=== PATIENT | female | born 2005 | race Hispanic/Latino ===

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

== ENCOUNTER 2024-01-14 22:06 | Emergency (ER) | payer OTHER ==
[2024-01-14] MEDS ORDERED: FLEET ENEMA ADULT PR ONE (23:43)
[2024-01-14] MEDS ORDERED: LACTULOSE 20 GM/30 ML UCUP ONE (23:43)
[2024-01-15] MEDS ORDERED: KETOROLAC 30 MG/ML INJ ONE (00:12)
[2024-01-15] MEDS ORDERED: DIAZEPAM 10 MG/2 ML INJ SYRINGE ONE (02:01)
--- NOTE | 2024-01-15 02:07 | ER ---
Nurse's Notes [facility] Name: Marcela Lim Age: 18 yrs Sex: Female : 2005 Arrival Date: 01/14/2024 Time: 22:06 Bed 6 Private MD: Diagnosis: Constipation and fecal impaction secondary to opiate abuse Presentation: 01/13 22:47 Chief complaint: Patient states: "I'm constipated, I was here in November for it.". vc1 Coronavirus screen: Client denies travel out of the [place] in the last 14 days. At this time, the client does not indicate any symptoms associated with coronavirus-19. Ebola Screen: Patient negative for fever greater than or equal to 101.5 degrees Fahrenheit, and additional compatible Ebola Virus Disease symptoms Patient denies exposure to infectious person. Patient denies travel to an Ebola-affected area in the 21 days before illness onset. No symptoms or risks identified at this time. Initial Sepsis Screen: Does the patient meet any 2 criteria? No. Patient's initial sepsis screen is negative. Does the patient have a suspected source of infection? No. Patient's initial sepsis screen is negative. Risk Assessment: Do you want to hurt yourself or someone else? Patient reports no desire to harm self or others. Onset of symptoms was January 09, 2024. 22:47 Method Of Arrival: Ambulatory vc1 22:47 Acuity: IVETH 3 vc1 Triage Assessment: 22:50 General: Appears in no apparent distress. uncomfortable, slender, unkempt, Behavior is vc1 cooperative, anxious. Pain: Complains of pain in right lower quadrant and left lower quadrant Pain does not radiate. Pain currently is 10 out of 10 on a pain scale. Quality of pain is described as crampy, pressure, squeezing, Noted to be guarding. EENT: No deficits noted. No signs and/or symptoms were reported regarding the EENT system. Neuro: Level of Consciousness is awake, alert, obeys commands, Oriented to person, place, time, situation, Appropriate for age. Cardiovascular: Capillary refill < 3 seconds Patient's skin is warm and dry. Respiratory: Airway is patent Respiratory effort is even, unlabored, Respiratory pattern is regular, symmetrical. GI: Abdomen is flat, Reports lower abdominal pain, bloating, constipation. : No deficits noted. No signs and/or symptoms were reported regarding the genitourinary system. Derm: Skin is intact, is healthy with good turgor, Skin is dry, Skin is normal, Skin temperature is warm. Musculoskeletal: Circulation, motion, and sensation intact. Range of motion: intact in all extremities. 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 - Infectious Disease History:: Denies. - Social history:: Smoking status: Patient reports the use of cigarette tobacco products, smokes one pack cigarettes per day. Reported history of juuling and/or vaping. Patient uses street drugs, opiates. Screenin:50 Abuse screen: Denies threats or abuse. Nutritional screening: No deficits noted. vc1 Tuberculosis screening: No symptoms or risk factors identified. 23:[address] [facility] ED Fall Risk Assessment (Adult) History of falling in the last 3 months, vc1 including since admission No falls in past 3 months (0 pts) Confusion or Disorientation No (0 pts) Intoxicated or Sedated Yes (3 pts) Impaired Gait No (0 pts) Mobility Assist Device Used No (0 pt) Altered Elimination Yes (1 pt) Score/Fall Risk Level 3 or more points = High Risk Oriented to surroundings, Maintained a safe environment, Educated pt \\T\\ family on fall prevention, incl call for assistance when getting out of bed, Hourly rounding (assess needs \\T\\ fall precautionary measures) done. Assessment: 01/14 00:15 Reassessment: Patient and/or family updated on plan of care and expected duration. Pain bm8 level reassessed. General: Appears distressed, uncomfortable, Behavior is agitated, anxious. Pain: Pain radiates to abdomen Pain currently is 10 out of 10 on a pain scale. Quality of pain is described as aching, crampy. Neuro: No deficits noted. Level of Consciousness is awake, alert, obeys commands, Oriented to person, place, time, situation, Appropriate for age. Cardiovascular: Denies chest pain, Capillary refill < 3 seconds in bilateral fingers Patient's skin is warm and dry. Respiratory: Airway is patent Trachea midline Respiratory effort is even, unlabored, Respiratory pattern is regular, symmetrical, Breath sounds are clear bilaterally. GI: Bowel sounds hypoactive in left upper quadrant and left lower quadrant Abd is rigid in left upper quadrant and left lower quadrant Reports constipation, Pain is 10 out of 10 on a pain scale. : No signs and/or symptoms were reported regarding the genitourinary system. EENT: No signs and/or symptoms were reported regarding the EENT system. Derm: No signs and/or symptoms reported regarding the dermatologic system. Musculoskeletal: No signs and/or symptoms reported regarding the musculoskeletal system. 02:06 Reassessment: pt stated that she is not going to do this while awake and she was bm8 leaving and going to [place].. Pt Refused to AMA form and walked out with mother. Vital Signs: 01/13 22:47 BP 126 / 74; Pulse 103; Resp 15; Temp 97; Pulse Ox 98% ; Weight 45.36 kg; Height 5 ft. vc1 3 in. ; Pain 10/10; 01/14 00:15 BP 158 / 99; Pulse 96; Resp 17; Temp 97; Pulse Ox 100% ; Pain 10/10; bm8 02:06 bm8 01/13 22:47 Body Mass Index 17.71 (45.36 kg, 160.02 cm) - Percentile 4.4 % vc1 01/13 22:47 Pain Scale: Adult vc1 01/14 00:15 Pain Scale: Adult bm8 02:06 refused to allow last vital signs bm8 Marilyn Coma Score: 00:15 Eye Response: spontaneous(4). Motor Response: obeys commands(6). Verbal Response: bm8 oriented(5). Total: 15. 02:06 Eye Response: spontaneous(4). Motor Response: obeys commands(6). Verbal Response: bm8 oriented(5). Total: 15. ED Course: 01/13 22:11 Patient arrived in ED. ra3 22:12 Madi Abel MD is Attending Physician. rt 22:20 [facility] Stovall [facility]C [facility] sb4 22:48 Triage completed. vc1 22:50 Arm band placed on right wrist. vc1 01/14 00:08 Joe Boucher, RN is Primary Nurse. bm8 00:15 Patient has correct armband on for positive identification. Bed in low position. Call bm8 light in reach. Side rails up X 1. Adult w/ patient. Client placed on continuous cardiac and pulse oximetry monitoring. NIBP monitoring applied. Pulse ox on. NIBP on. Door closed. Noise minimized. Warm blanket given. Pillow given. Verbal reassurance given. Head of bed elevated. 00:15 Patient maintains SpO2 saturation greater than 95% on room air. bm8 01:38 Abdomen In Process Unspecified. EDMS 02:06 Provided Education on: post er care,.. bm8 02:06 No provider procedures requiring assistance completed. IV discontinued, intact, bm8 bleeding controlled, No redness/swelling at site. Pressure dressing applied. Administered Medications: 00:08 Drug: Lactulose PO 30 grams 45 ml PO once Volume: 45 ml; Route: PO; bm8 02:06 Follow up: Response: No adverse reaction bm8 00:15 Drug: Ketorolac IM 15 mg IM once Route: IM; Site: right deltoid; bm8 02:06 Follow up: Response: No adverse reaction bm8 01:48 CANCELLED (Physician Discretion): diazepam5 mg IM once sb4 02:06 Not Given (Patient Refused): fleet ml NE once; may repeat once bm8 02:06 Not Given (Patient Refused): [id number] mg IM once bm8 Medication: 01/13 23:01 VIS not applicable for this client. vc1 Outcome: 01/14 02:06 AMA Left before signing form, bm8 Condition: stable Discharge instructions given to patient, family, Demonstrated understanding of instructions, follow-up care, 02:10 Patient left the ED. bm8 Signatures: Dispatcher [employer] EDVA Sharon Caldwell RN RN vc1 Ena Stovall PA-C PAJacob sb4 Madi Abel MD MD rt [place], Ruby ra3 Joe Boucher, RN RN bm8
--- NOTE | 2024-01-15 02:07 | EDPHYS ---
Physician Documentation [facility] Name: Marcela Lim Age: 18 yrs Sex: Female : 2005 Arrival Date: 01/14/2024 Time: 22:06 Bed 6 Private MD: ED Physician Madi bAel HPI: 01/13 23:29 This 18 yrs old Female presents to ER via Ambulatory with complaints of Constipation - sb4 x5days. 23:29 chronic constipation secondary to opiate abuse. has not had a BM in 5 days. has sb4 required fecal disimpaction in the past. has tried taking 1 stool softener and 1 laxative without relief. was taking ducolax daily but stopped awhile back. uses opiates daily. PRODUCTION EDITOR: 23:00 LMP 01/13/2024, unknown vc1 Historical: - Allergies: 22:49 No Known Allergies; vc1 - Home Meds: 22:49 None [Active]; vc1 - PMHx: 22:49 constipation; Opiate Abuse; vc1 - PSHx: 22:49 None; vc1 - Immunization history:: Client reports receiving the 2nd dose of the Covid vaccine, Flu vaccine is not up to date. - Infectious Disease History:: Denies. - Social history:: Smoking status: Patient reports the use of cigarette tobacco products, smokes one pack cigarettes per day. Reported history of juuling and/or vaping. Patient uses street drugs, opiates. ROS: 23:29 Constitutional: Negative for fever, chills, and weight loss, sb4 23:29 Abdomen/GI: Positive for abdominal pain, constipation, abdominal cramps, 23:29 All other systems are negative, Exam: 23:29 Head/Face: Normocephalic, atraumatic. Eyes: Extra-ocular motions intact. Periorbital sb4 areas with no swelling, redness, or edema. ENT: Mucous membranes moist. Respiratory: No increased work of breathing, no retractions or nasal flaring. Abdomen/GI: Soft, non-tender, no distension. Skin: Warm, dry with normal turgor. Normal color with no rashes, no lesions, and no evidence of cellulitis. 23:29 Constitutional: The patient appears alert, awake, restless, uncomfortable, Vital Signs: 22:47 BP 126 / 74; Pulse 103; Resp 15; Temp 97; Pulse Ox 98% ; Weight 45.36 kg; Height 5 ft. vc1 3 in. ; Pain 10/; 01/14 00:15 BP 158 / 99; Pulse 96; Resp 17; Temp 97; Pulse Ox 100% ; Pain 10/10; bm8 02:06 bm8 01/13 22:47 Body Mass Index 17.71 (45.36 kg, 160.02 cm) - Percentile 4.4 % vc1 01/13 22:47 Pain Scale: Adult vc1 01/14 00:15 Pain Scale: Adult bm8 02:06 refused to allow last vital signs bm8 Marilyn Coma Score: 00:15 Eye Response: spontaneous(4). Motor Response: obeys commands(6). Verbal Response: bm8 oriented(5). Total: 15. 02:06 Eye Response: spontaneous(4). Motor Response: obeys commands(6). Verbal Response: bm8 oriented(5). Total: 15. MDM: 01/13 22:53 Medical Screening Exam initiated sb4 01/14 01:53 Data reviewed: vital signs, nurses notes, radiologic studies, and as a result, I will sb4 discharge patient. Counseling: I had a detailed discussion with the patient and/or guardian regarding the historical points, exam findings, and any diagnostic results supporting the discharge/admit diagnosis, radiology results, the need for outpatient follow up, for definitive care, to return to the emergency department if symptoms worsen or persist or if there are any questions or concerns that arise at home. 01:58 Independent interpretation of the following test(s) in the Emergency Department CT sb4 Scan: My interpretation is My interpretation of the CT abdomen pelvis images is large stool burden with fecal impaction. 02:03 ED course: Patient and mother were very unhappy with mild anxiolytic diazepam to relax sb4 patient in order to do fecal disimpaction and promptly left the ED. they wanted full sedation for procedure because they had it last time. I instructed them that it would be safest to try this method first and escalate to moderate sedation if not tolerated but they were unhappy and stormed out. stated that they will be going [facility]. my disposition will be AMA for this reason. 02:07 Refusal of service: The patient/guardian displays adequate decision making capability sb4 and despite a detailed discussion of alternatives, benefits, risks, and consequences refuses: disimpaction. 01/14 01:38 Order name: Abdomen ; Complete Time: 17:04 EDMS Administered Medications: 00:08 Drug: Lactulose PO 30 grams 45 ml PO once Volume: 45 ml; Route: PO; bm8 02:06 Follow up: Response: No adverse reaction bm8 00:15 Drug: Ketorolac IM 15 mg IM once Route: IM; Site: right deltoid; bm8 02:06 Follow up: Response: No adverse reaction bm8 01:48 CANCELLED (Physician Discretion): diazepam5 mg IM once sb4 02:06 Not Given (Patient Refused): fleet ml MD once; may repeat once bm8 02:06 Not Given (Patient Refused): [id number] mg IM once bm8 Disposition: 03:35 Co-signature as Attending Physician, Madi Abel MD I reviewed the patient's care rt provided by the Advanced Practice Provider and agree with the diagnosis and treatment plan. Disposition Summary: 01/15/24 02:07 Left Against Medical Advice Notes: Location: Home sb4 Problem: an ongoing problem sb4 Symptoms: are unchanged sb4 Condition: Fair sb4 Diagnosis - Constipation and fecal impaction secondary to opiate abuse sb4 Followup: sb4 - With: Emergency Department - When: As needed - Reason: Trouble breathing, Worsening of condition Discharge Instructions: - Discharge Summary Sheet sb4 - Constipation, Adult sb4 - High-Fiber Eating Plan sb4 - Fecal Impaction sb4 Prescriptions: - bisacodyl 5 mg Oral tablet, delayed release (enteric coated) - take 2 tablet ORAL route daily as needed for constipation; 30 tablet; Refills: sb4 0, Product Selection Permitted - Lactulose 10 gram/15 mL Oral Solution - take 30 milliliters ORAL route once daily; 300 milliliter; Refills: 0, Product sb4 Selection Permitted Signatures: Dispatcher [facility] EDKY Sharon Caldwell RN RN vc1 Ena Stovall PA-C PA-C sb4 Madi Abel MD MD rt Joe Boucher RN RN bm8 Corrections: (The following items were deleted from the chart) 01/13 23:27 22:59 Abdomen Pelvis Wo Con+CT.RAD.BRZ ordered. EDKY EDMS 01/14 01:38 01/13 23:19 Abdomen Pelvis W Con+CT.RAD.BRZ ordered. EDMS EDMS 01/14 01:48 01:47 Diazepam IM 5 mg IM once ordered. sb4 sb4 02:07 02:03 ED course: Patient and mother were very unhappy with mild anxiolytic diazepam to sb4 relax patient in order to do fecal disimpaction and promptly left the ED. they wanted full sedation for procedure because they had it last time. I instructed them that it would be safest to try this method first and escalate to moderate sedation if not tolerated but they were unhappy and stormed out. sb4 02:08 02:03 ED course: Patient and mother were very unhappy with mild anxiolytic diazepam to sb4 relax patient in order to do fecal disimpaction and promptly left the ED. they wanted full sedation for procedure because they had it last time. I instructed them that it would be safest to try this method first and escalate to moderate sedation if not tolerated but they were unhappy and stormed out. stated that they will be going to [facility]. sb4
--- NOTE | 2024-01-15 02:13 | RAD REPORT ---
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 COMPARISON: CT Abdomen Pelvis 11/25/2023. PROCEDURE: Noncontrast images of the abdomen and pelvis were performed from the lung bases to the ischial tubero sities. In addition multiplanar reformats in the coronal and sagittal plane were obtained and reviewed. An individualized dose optimization technique, Automated Exposure Control, was utilized for the perfo rmed procedure. FINDINGS: The lack of IV contrast limits evaluation of solid organs, subtle lesions cannot be exclude d. Lung bases: The lung bases demonstrate to be clear. Liver: Grossly the unopacified liver demonstrates to be normal, no focal lesions are identified. Gallbladder: Grossly the unopacified gallbladder demonstrate to be normal. Adrenal glands: Grossly the unopacified adrenal glands demonstrate to be normal. Pancreas: Grossly the unopacified pancreas demonstrate to be normal Spleen: The spleen demonstrate to be normal. Kidneys: Grossly the unopacified kidneys demonstrate to be within normal limits. There is no eviden ce for nephrolithiasis and/or hydronephrosis. GI: The opacified stomach and small bowel demonstrate to be within normal limits. No evidence for bow el dilatation and/or free air. The appendix is normal. The partially opacified large bowel demonstrate fecal residue throughout corresponding to constipation. Significant fecal residue within the rectum correspond to impaction. : The urinary bladder demonstrate to be unremarkable. Genitalia: The uterus demonstrate to be within normal limits. There are normal adnexal structures. Abdominal aorta: The aorta demonstrate demonstrate to be within normal limits. Retroperitoneum: There is no retroperitoneal lymphadenopathy. There is no evidence for ascites and/or abnormal fluid collections. Bones: The bony structures demonstrate to be within normal limits. No evidence for compression deform ity and/or significant skeletal lesions. Soft tissues: The rest of the soft tissue and bony structures are within normal limits. IMPRESSION: Constipation with fecal residue throughout the large bowel corresponding to impaction. Otherwise unremarkable CT scan of the abdomen and pelvis without contrast. Electronically signed by: Ismael Flores MD 01/15/2024 02:09 AM ESE TEACHER Due to temporary technical issues with the PACS/Ritot reporting system, reports are being leelee d by the in-house radiologist without review as a courtesy to ensure prompt reporting the interpreting radiologist is fully responsible for the content of the report. Transcribed Date/Time: 01/15/2024 2:12 AM
[2024-01-15 03:50] VITALS: TEMP 97
[2024-01-15 03:51] VITALS: BP 158/99; O2SAT 100
== END 2024-01-15 02:10 | disposition left against medical advice (07) ==
LOC: ER 22:06
DX: K56.41 Fecal impaction (principal); F11.10 Opioid abuse, uncomplicated; Z72.0 Tobacco use
CPT/HCPCS: 74176; 96372; 99284; J3360

== ENCOUNTER 2024-02-22 18:57 | Emergency (ER) | payer OTHER ==
[2024-02-22] MEDS ORDERED: NA CHLORIDE 0.9% 1,000 ML ONE (20:24)
[2024-02-22 20:44] LABS: Absolute Lymphocytes (CBC) 1.6 K/uL (0.7-4.9); Absolute Monocytes 0.4 K/uL (0.1-1.3); Absolute Neutrophil 7.1 K/uL (1.8-8.0); Basophils % 0.4 % (0-1.3); Eosinophils % 0.2 % (0-4.4); Hematocrit 43.1 % (36.0-45.0); Hemoglobin 14.4 g/dL (12.0-15.0); Lymphocytes % 17.9 % (15.3-44.8); MCH 26.7 pg (27.0-35.0); MCHC 33.4 g/dL (32.0-36.0); MPV 6.8 fL (7.6-11.3); Monocytes % 3.9 % (3.3-12.3); Neutrophils % 77.6 % (41.7-73.7); Nucleated Red Blood Cells % 0.1 % (0-0); Platelets 451 thou/uL (152-406); RBC Red Blood Cell Count 5.39 M/uL (3.86-4.86); Red Cell Distribution Width 12.9 % (12.1-15.2)
[2024-02-22] MEDS ORDERED: ONDANSETRON 4 MG/2 ML VIAL ONE (20:46)
[2024-02-22] MEDS ORDERED: ETOMIDATE 20 MG/10 ML VIAL IV ONE (20:46)
[2024-02-22 21:01] LABS: Albumin 4.3 g/dL (3.4-5.0); Anion Gap 12.2 mEq/L (5.0-15.0); Bilirubin Total 0.6 mg/dL (0.2-1.0); Globulin 4.1 g/dL (2.3-3.5); Potassium 3.2 mEq/L (3.5-5.1); Protein, Total 8.4 g/dL (6.4-8.2)
--- NOTE | 2024-02-22 21:09 | RAD REPORT ---
EXAM:Abdomen Acute Series HISTORY: ABD PAIN COMPARISON: None FINDINGS/IMPRESSION: Lungs are clear. The heart is normal in size. No subdiaphragmatic free air. Sign ificant retained stool throughout the colon compatible with constipation.
[2024-02-22] MEDS ORDERED: MIDAZOLAM HCL 5 ML ONE (21:21)
--- NOTE | 2024-02-22 23:59 | ER ---
Nurse's Notes [facility] Name: Marcela Lim Age: 18 yrs Sex: Female : 2005 Arrival Date: 02/22/2024 Time: 18:57 Bed 14 Private MD: Diagnosis: Fecal impaction;Acute obstipation Presentation: 02/21 19:05 Chief complaint: Patient states: Patient states she has been constipated for the past 2 le1 weeks and the mother usually helps with disimpaction but is not available. Coronavirus screen: At this time, the client does not indicate any symptoms associated with coronavirus-19. Ebola Screen: Patient negative for fever greater than or equal to 101.5 degrees Fahrenheit, and additional compatible Ebola Virus Disease symptoms Patient denies exposure to infectious person. Patient denies travel to an Ebola-affected area in the 21 days before illness onset. No symptoms or risks identified at this time. Initial Sepsis Screen: Does the patient meet any 2 criteria? No. Patient's initial sepsis screen is negative. Does the patient have a suspected source of infection? No. Patient's initial sepsis screen is negative. Risk Assessment: Do you want to hurt yourself or someone else? Patient reports no desire to harm self or others. Onset of symptoms was February 05, 2024. 19:05 Method Of Arrival: EMS: [facility] le1 19:05 Acuity: IVETH 3 le1 Triage Assessment: 19:13 General: Appears distressed, uncomfortable, unkempt, Behavior is agitated, anxious, le1 restless, Smells of cigarettes. Pain: Complains of pain in abdomen Pain currently is 10 out of 10 on a pain scale. Quality of pain is described as aching. EENT: No deficits noted. Neuro: No deficits noted. Cardiovascular: No deficits noted. Respiratory: No deficits noted. GI: Reports constipation. : No deficits noted. Derm: No deficits noted. Historical: - PMHx: 19:12 constipation; Opiate Abuse; le1 - Immunization history:: Adult Immunizations up to date. - Infectious Disease History:: Denies. - Social history:: Smoking status: Patient reports the use of cigarette tobacco products, denies chronic smoking, but will smoke occasionally. - Family history:: not pertinent. Screenin:14 [facility] ED Fall Risk Assessment (Adult) History of falling in the last 3 months, le1 including since admission No falls in past 3 months (0 pts) Confusion or Disorientation No (0 pts) Intoxicated or Sedated No (0 pts) Impaired Gait No (0 pts) Mobility Assist Device Used No (0 pt) Altered Elimination No (0 pt) Score/Fall Risk Level 0 - 2 = Low Risk Oriented to surroundings, Maintained a safe environment, Educated pt \T\ family on fall prevention, incl call for assistance when getting out of bed, Assessed \T\ reinforced patient's understanding of fall precautions, Hourly rounding (assess needs \T\ fall precautionary measures) done. Abuse screen: Denies threats or abuse. Denies injuries from another. Nutritional screening: No deficits noted. Tuberculosis screening: No symptoms or risk factors identified. Assessment: 19:14 General: Triage assessment. le1 19:51 General: Patient anxious stating she wants to go to restroom but is too scared. Patient le1 decided to wait on provider before attempting to go to bathroom. 19:52 GI: Abd is soft X 4 quads Abdomen is tender to palpation X 4 quads. le1 Vital Signs: 19:05 BP 130 / 93; Pulse 87; Resp 16; Temp 98.3(O); Pulse Ox 99% on R/A; Pain 10/10; le1 19:54 BP 147 / 121; Pulse 136; Resp 14; Pulse Ox 100% on R/A; Pain 10/10; le1 21:09 BP 130 / 80; Pulse 117; Resp 25; Pulse Ox 95% on R/A; Pain 10/10; le1 02/22 00:11 BP 132 / 67; Pulse 87; Resp 16; Temp 98.3(O); Pulse Ox 100% on R/A; Pain 0/10; le1 02/21 19:05 Pain Scale: Adult le1 19:54 Pain Scale: Adult le1 21:09 Pain Scale: Adult le1 02/22 00:11 Pain Scale: Adult le1 Marilyn Coma Score: 06:50 Eye Response: spontaneous(4). Motor Response: obeys commands(6). Verbal Response: sp4 oriented(5). Total: 15. ED Course: 02/21 18:59 Patient arrived in ED. sp 19:04 Kevon Jensen RN is Primary Nurse. le1 19:12 Triage completed. le1 19:14 Arm band placed on right wrist. le1 19:15 Bed in low position. Call light in reach. Side rails up X2. Adult w/ patient. Provided le1 Education on: Informed to use call light if needing assistance. 20:06 Meng Zamarripa MD is Attending Physician. sp4 20:35 CBC with Diff Sent. le1 20:35 CMP Sent. le1 20:35 Lipase Sent. le1 20:35 Test, Serum Sent. le1 20:54 Inserted saline lock: 20 gauge in right antecubital area, using aseptic technique. le1 Blood collected. Flushed with 10 mL NS. 21:04 Abdomen Acute Series XRAY In Process Unspecified. EDMS 23:58 Nick Sanon MD is Referral Physician. sp4 02/22 00:12 Assisted provider with: Moderate Sedation. IV discontinued, intact, bleeding le1 controlled, No redness/swelling at site. Pressure dressing applied. Administered Medications: 02/21 20:35 Drug: NS 0.9% IV 1000 ml IV at 1000 ml once; to be given as a bolus over 60 minutes le1 Route: IV; Rate: 1000 ml; Site: right antecubital; 22:09 Follow up: IV Status: Completed infusion le1 21:16 Drug: Ondansetron IVP 4 mg IVP once; over 2 minutes Route: IVP; Site: right antecubital;le1 21:16 Follow up: Response: No adverse reaction le1 21:17 Drug: Etomidate IVP 20 mg IVP once Route: IVP; Site: right antecubital; le1 21:17 Follow up: Response: RASS: Restless (+1) le1 21:21 Drug: Midazolam IVP or IV 5 mg IVP once Route: IVP; Site: right antecubital; le1 21:21 Follow up: Response: Patient is sedated le1 Medication: 02/22 00:14 VIS not applicable for this client. le1 Outcome: 02/21 23:59 Discharge ordered by . sp4 02/22 00:13 Discharged to home via wheelchair, with family, le1 Condition: improved Discharge instructions given to patient, Instructed on discharge instructions, follow up and referral plans. medication usage, Demonstrated understanding of instructions, follow-up care, medications, Prescriptions given X 1, 00:14 Patient left the ED. le1 Signatures: Dispatcher [employer] EDMS Mackenzie Merritt Sergey, MD MD sp4 Kevon Jensen RN RN le1
--- NOTE | 2024-02-22 23:59 | EDPHYS ---
Physician Documentation [facility] Name: John Calles Age: 18 yrs Sex: Female : 2005 Arrival Date: 02/22/2024 Time: 18:57 Bed 14 Private MD: ED Physician Meng Zamarripa HPI: 02/21 20:06 This 18 yrs old Female presents to ER via EMS with complaints of Constipation.sp4 02/22 06:50 18-year-old female presents with moderate to severe rectal pain. Patient states she has sp4 been constipated for the past 2 weeks. Patient has history of prior fentanyl addiction. Patient states that she has completed rehabilitation and has been off of her methadone for the past 2 weeks. Patient denies consumption of any opiates at this time. Patient is known to me from previous visit for severe constipation with fecal impaction. Patient has acute distress on arrival.. Historical: - PMHx: 02/21 19:12 constipation; Opiate Abuse; le1 - Immunization history:: Adult Immunizations up to date. - Infectious Disease History:: Denies. - Social history:: Smoking status: Patient reports the use of cigarette tobacco products, denies chronic smoking, but will smoke occasionally. - Family history:: not pertinent. ROS: 02/22 06:50 Constitutional: Negative for fever, chills, and weight loss, positive for rectal pain sp4 and constipation All other systems are negative, Exam: 06:50 Constitutional: This is a well developed, well nourished patient who is awake, alert, sp4 patient is in moderate distress on arrival Head/Face: Normocephalic, atraumatic. Eyes: Pupils equal round and reactive to light, extra-ocular motions intact. Lids and lashes normal. Conjunctiva and sclera are not injected. Cornea within normal limits. Periorbital areas with no swelling, redness, or edema. ENT: Nares patent. No nasal discharge, no septal abnormalities noted. Tympanic membranes are normal and external auditory canals are clear. Oropharynx with no redness, swelling, or masses, exudates, or evidence of obstruction, uvula midline. Mucous membranes moist. Neck: Trachea midline, no thyromegaly or masses palpated, and no cervical lymphadenopathy. Supple, full range of motion without nuchal rigidity, or vertebral point tenderness. Chest/axilla: Normal chest wall appearance and motion. Nontender with no deformity. No lesions are appreciated. Cardiovascular: Regular rate and rhythm with a normal S1 and S2. No gallops, murmurs, or rubs. Normal PMI, no JVD. No pulse deficits. Respiratory: Lungs have equal breath sounds bilaterally, clear to auscultation and percussion. No rales, rhonchi or wheezes noted. No increased work of breathing, no retractions or nasal flaring. Abdomen/GI: Soft, with normal bowel sounds. No distension or tympany. No guarding or rebound. No evidence of tenderness throughout. Back: No spinal tenderness. No costovertebral tenderness. Female : Normal external genitalia. Rectal exam reveals moderate size fecal impaction. 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 Skin: Warm, dry with normal turgor. Normal color with no rashes, no lesions, and no evidence of cellulitis. MS/ Extremity: Pulses equal, no cyanosis. Neurovascular intact. Full, normal range of motion. Neuro: Awake and alert, GCS 15, oriented to person, place, time, and situation. Cranial nerves II-XII grossly intact. Motor strength 5/5 in all extremities. Sensory grossly intact. Psych: Awake, alert, with orientation to person, place and time. Patient has restlessness and mild agitation secondary to pain Vital Signs: 02/21 19:05 BP 130 / 93; Pulse 87; Resp 16; Temp 98.3(O); Pulse Ox 99% on R/A; Pain 10/10; le1 19:54 BP 147 / 121; Pulse 136; Resp 14; Pulse Ox 100% on R/A; Pain 10/10; le1 21:09 BP 130 / 80; Pulse 117; Resp 25; Pulse Ox 95% on R/A; Pain 10/10; le1 02/22 00:11 BP 132 / 67; Pulse 87; Resp 16; Temp 98.3(O); Pulse Ox 100% on R/A; Pain 0/10; le1 02/21 19:05 Pain Scale: Adult le1 19:54 Pain Scale: Adult le1 21:09 Pain Scale: Adult le1 02/22 00:11 Pain Scale: Adult le1 Marilyn Coma Score: 06:50 Eye Response: spontaneous(4). Motor Response: obeys commands(6). Verbal Response: sp4 oriented(5). Total: 15. Procedures: 06:50 Fecal disimpaction: digital disimpaction was performed, with a large amount of stool sp4 expressed. The patient tolerated the intervention well, Digital rectal exam and fecal disimpaction accomplished under moderate sedation with etomidate and Versed.. Procedural sedation: Pre-procedure assessment: the patient has been NPO 4 hour(s) prior to arrival, ASA physical classification: I - healthy, no underlying organic disease, Airway assessment: able to hyperextend neck, able to maintain airway, can open mouth without difficulty, Mallampati classification of tongue size: II - faucial pillars and soft palate can be visualized, but uvula is masked by the base of the tongue, Monitoring during procedure: monitoring manager, continuous pulse oximetry, nurse at bedside at all times, Medications employed: Etomidate, 20 mg(s), Versed, 5 mg(s), Alternatives to procedural sedation discussed Patient responded well to moderate sedation. Total intra sedation time 26 minutes. On awakening patient was provided moderate sedation discharge instructions. , Post-procedure assessment: the patient is moderately sedated, Trevino sedation score: 4 - brisk response to a light glabellar tap, Respiratory status: requires supplemental oxygen to maintain acceptable oxygen saturation, a reversal agent was not used, Moderate sedation without complications.. MDM: 02/21 20:07 Medical Screening Exam initiated sp4 02/22 00:02 ED course: RADIOLOGYSERVICES REPORT Name: JOHN CALLES Acct Number: s :2005 Age:18 Sex:F Ord Phys: Meng Zamarripa MD Unit Number: [id number] [facility]rey Care Dr: NONE Status: [facility] ER Exam Date: 02/22/24 EXAM:AbdomenAcute Series HISTORY: ABD PAIN COMPARISON: None FINDINGS/IMPRESSION: Lungs are clear. The heart is normal in size. No subdiaphragmatic free air. Significant retained stool throughout the colon compatible with constipation. . 06:56 Differential diagnosis: bowel obstruction, diverticulitis, gastritis. Data reviewed: sp4 vital signs, nurses notes, lab test result(s), radiologic studies, plain films. Consideration of Admission/Observation Escalation of care including admission/observation considered. ED course: Patient felt much improved after disimpaction. Stable for discharge home.. 02/21 20:06 Order name: Test, Serum; Complete Time: 23:58 sp4 02/21 20:07 Order name: CBC with Diff; Complete Time: 23:58 sp4 02/21 20:07 Order name: CMP; Complete Time: 23:58 sp4 02/21 20:07 Order name: Lipase; Complete Time: 23:58 sp4 02/21 20:06 Order name: Abdomen Acute Series XRAY; Complete Time: 23:58 sp4 02/21 20:06 Order name: Saline Lock; Complete Time: 20:35 sp4 02/21 20:07 Order name: Labs collected and sent; Complete Time: 20:35 sp4 02/21 20:20 Order name: Moderate Sedation; Complete Time: 00:11 sp4 Administered Medications: 02/21 20:35 Drug: NS 0.9% IV 1000 ml IV at 1000 ml once; to be given as a bolus over 60 minutes le1 Route: IV; Rate: 1000 ml; Site: right antecubital; 22:09 Follow up: IV Status: Completed infusion le1 21:16 Drug: Ondansetron IVP 4 mg IVP once; over 2 minutes Route: IVP; Site: right antecubital;le1 21:16 Follow up: Response: No adverse reaction le1 21:17 Drug: Etomidate IVP 20 mg IVP once Route: IVP; Site: right antecubital; le1 21:17 Follow up: Response: RASS: Restless (+1) le1 21:21 Drug: Midazolam IVP or IV 5 mg IVP once Route: IVP; Site: right antecubital; le1 21:21 Follow up: Response: Patient is sedated le1 Disposition: 02/22 06:56 Chart complete. sp4 Disposition Summary: 02/22/24 23:59 Discharge Ordered Notes: Location: Home sp4 Problem: new sp4 Symptoms: have improved sp4 Condition: Stable sp4 Diagnosis - Fecal impaction sp4 - Acute obstipation sp4 Followup: sp4 - With: Nick Sanon MD - When: 7 - 10 days - Reason: Recheck today's complaints, Continuance of care Discharge Instructions: - Discharge Summary Sheet sp4 - Fecal Impaction sp4 Forms: - Patient Portal Instructions sp4 Prescriptions: - Lactulose 10 gram/15 mL Oral solution - take 30 milliliters ORAL route once daily PRN constipation; 300 milliliter; sp4 Refills: 0, Product Selection Permitted Signatures: Dispatcher [employer] EDMS Meng Zaamrripa MD MD sp4 Kevon Jensen RN RN le1 Corrections: (The following items were deleted from the chart) 02/21 20:07 20:07 CBC+H.LAB.BRZ ordered. EDMS EDMS 20:07 20:07 COMPREHENSIVE METABOLIC PANEL+C.LAB.BRZ ordered. EDMS EDMS 20:07 20:07 LIPASE+C.LAB.BRZ ordered. EDMS EDMS
[2024-02-23 01:05] VITALS: TEMP 98.3
[2024-02-23 01:09] VITALS: BP 132/67; O2SAT 100
== END 2024-02-23 00:14 | disposition home or self-care (01) ==
LOC: ER 18:57
DX: K56.41 Fecal impaction (principal); F17.210 Nicotine dependence, cigarettes, uncomplicated
CPT/HCPCS: 96361; 85025; 36415; 84703; 83690; 80053; 74022; 96375; 96374; 99284; J2250; J2405; J7030

== ENCOUNTER 2024-06-21 13:15 | Emergency (ER) | payer OTHER ==
--- NOTE | 2024-06-21 17:35 | EDPHYS ---
Physician Documentation [facility] Name: Marcela Lim Age: 19 yrs Sex: Female : 2005 Arrival Date: 06/21/2024 Time: 13:15 Bed IW1 Private MD: ED Physician Toni Swenson HPI: 06/21 13:45 This 19 yrs old Female presents to ER via EMS with complaints of Constipation. cp 13:45 The patient presents with abdominal pain that is diffuse. Onset: The symptoms/episode cp began/occurred gradually. Associated signs and symptoms: Pertinent positives: constipation, with last bowel movement about 10 days ago, Pertinent negatives: nausea and vomiting, diarrhea, fever. The symptoms are described as crampy. Severity of pain: in the emergency department the pain is unchanged despite home interventions. 13:45 Patient admits to use of street fentanyl with last use yesterday that contributes to cp constipation. 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 - Infectious Disease History:: Denies. - Social history:: Smoking status: Patient reports the use of cigarette tobacco products, Patient uses street drugs, marijuana, percs/fentanyl . ROS: 13:50 Abdomen/GI: Positive for abdominal pain, constipation, Negative for vomiting, diarrhea, cp 13:50 Eyes: Negative for injury, pain, redness, and discharge, cp 13:50 Constitutional: Negative for body aches, chills, fever, poor PO intake, 13:50 Cardiovascular: Negative for chest pain, palpitations, 13:50 Respiratory: Negative for cough, shortness of breath, wheezing, 13:50 All other systems are negative, Exam: 13:55 Constitutional: The patient appears in no acute distress, alert, awake, non-toxic, well cp developed, well nourished, uncomfortable, 13:55 Head/Face: Normocephalic, atraumatic. cp 13:55 Eyes: Periorbital structures: appear normal, Conjunctiva: normal, no exudate, no injection, Lids and lashes: appear normal, bilaterally, 13:55 ENT: External ear(s): are unremarkable, Nose: is normal, Mouth: Lips: moist, Posterior pharynx: Airway: no evidence of obstruction, patent, 13:55 Chest/axilla: Inspection: normal, 13:55 Cardiovascular: Rate: normal, 13:55 Respiratory: the patient does not display signs of respiratory distress, Respirations: normal, no use of accessory muscles, no retractions, labored breathing, is not present, Breath sounds: are clear throughout, no decreased breath sounds, no stridor, no wheezing, 13:55 Abdomen/GI: Inspection: abdomen appears normal, Bowel sounds: active, all quadrants, Palpation: soft, in all quadrants, mild abdominal tenderness, in all quadrants, rebound tenderness, is not appreciated, involuntary guarding, is not appreciated, 13:55 Back: pain, is absent, ROM is normal, Vital Signs: 13:29 BP 114 / 78; Pulse 95; Resp 17; Temp 97; Pulse Ox 100% ; Weight 45.36 kg; Height 5 ft. jl7 4 in. ; Pain 9/10; 13:29 Body Mass Index 17.16 (45.36 kg, 162.56 cm) jl7 13:29 Pain Scale: Adult jl7 MDM: 13:31 Medical Screening Exam initiated cp 13:45 Differential diagnosis: bowel obstruction, urinary tract infection, constipation. cp 17:33 Data reviewed: vital signs, nurses notes. cp 17:33 ED course: patient left ED prior to administration of meds, radiology imaging. cp Administered Medications: 13:42 CANCELLED (Physician Discretion): magnesium citrateliquid 300 ml PO once cp 17:35 Not Given (Pt left prior to med adminn): [id number] grams 45 ml PO once; may give if ss test negative Disposition Summary: 06/21/24 17:34 Discharge Ordered Notes: Location: Home cp Problem: new cp Symptoms: are unchanged cp Condition: Stable cp Diagnosis - Constipation, unspecified cp Followup: cp - With: Emergency Department - When: As needed - Reason: Worsening of condition Discharge Instructions: - Discharge Summary Sheet cp - Constipation, Adult cp Forms: - Medication Reconciliation Form cp - Antibiotic Education cp - Prescription Opioid Use cp - Patient Portal Instructions cp - Leadership Thank You Letter cp Addendum: 06/25/2024 07:21 Co-signature as Attending Physician, Toni Swenson MD I reviewed the patient's care r n provided by the Advanced Practice Provider and agree with the diagnosis and treatment plan. Signatures: Dispatcher [employer] EDToni Doherty MD MD rn Vick Rosales PA PA cp Leal, Jahala, RN RN jl7 Yolanda Strange RN ss Corrections: (The following items were deleted from the chart) 06/21 13:42 13:42 Abdomen With Erect+RAD.RAD.BRZ ordered. [facility] 13:42 13:42 Magnesium Citrate PO Liquid 300 ml PO once ordered. cp cp
--- NOTE | 2024-06-21 17:35 | ER ---
Nurse's Notes [facility] Name: Marcela Lim Age: 19 yrs Sex: Female : 2005 Arrival Date: 06/21/2024 Time: 13:15 Bed IW1 Private MD: Diagnosis: Constipation, unspecified Presentation: 06/21 13:29 Chief complaint: Patient states: Constipation x 1.5 weeks. Coronavirus screen: At this jl7 time, the client does not indicate any symptoms associated with coronavirus-19. Ebola Screen: No symptoms or risks identified at this time. Initial Sepsis Screen: Does the patient meet any 2 criteria? No. Patient's initial sepsis screen is negative. Does the patient have a suspected source of infection? No. Patient's initial sepsis screen is negative. Risk Assessment: Do you want to hurt yourself or someone else? Patient reports no desire to harm self or others. Onset of symptoms is unknown. 13:29 Method Of Arrival: EMS: [facility] 13:29 Acuity: IVETH 3 jl7 Triage Assessment: 13:30 General: Appears in no apparent distress. uncomfortable, Behavior is calm, cooperative, jl7 quiet. Pain: Complains of pain in abdomen Pain currently is 10 out of 10 on a pain scale. GI: Reports constipation. TOW MATE: 13:30 LMP N/A - Irregular menses, Not jl7 Historical: - Allergies: 13:30 No Known Allergies; jl7 - Home Meds: 13:30 None [Active]; jl7 - PMHx: 13:30 constipation; Opiate Abuse; jl7 - Immunization history:: Adult Immunizations unknown. - Infectious Disease History:: Denies. - Social history:: Smoking status: Patient reports the use of cigarette tobacco products, Patient uses street drugs, marijuana, percs/fentanyl . Assessment: 16:39 Reassessment: called from [employer] No answer. Unable to locate patient. [facility] 17:31 Reassessment: Called patient from [employer] No answer. Unable to locate patient. Vital Signs: 13:29 BP 114 / 78; Pulse 95; Resp 17; Temp 97; Pulse Ox 100% ; Weight 45.36 kg; Height 5 ft. jl7 4 in. ; Pain 9/10; 13:29 Body Mass Index 17.16 (45.36 kg, 162.56 cm) [facility] 13:29 Pain Scale: Adult [facility] ED Course: 13:23 Patient arrived in ED. im 13:30 Triage completed. 7 13:30 Vick Rosales PA is PHCP. cp 13:30 Toni Swenson MD is Attending Physician. cp 13:30 Arm band placed on right wrist. jl7 17:33 No provider procedures requiring assistance completed. Patient did not have IV access ss during this emergency room visit. Administered Medications: 13:42 CANCELLED (Physician Discretion): magnesium citrateliquid 300 ml PO once cp 17:35 Not Given (Pt left prior to med adminn): [id number] grams 45 ml PO once; may give if ss test negative Outcome: 17:34 Discharge ordered by . cp 17:35 Discharged to home Pt seen and evaluated by ALPHONSO Hensley. Pt left prior to receiving ss discharge instructions. 17:35 unknown 17:35 Patient left the ED. ss Signatures: Yolanda Strange RN RN Vick Greenfield PA PA cp Leal, Jahala, RN RN [facility] Skylar Morton im
[2024-06-21 17:53] VITALS: BP 114/78; TEMP 97; O2SAT 100
== END 2024-06-21 17:35 | disposition home or self-care (01) ==
LOC: ER 13:15
DX: K59.00 Constipation, unspecified (principal)
CPT/HCPCS: 99282

== ENCOUNTER 2024-06-22 04:00 | Emergency (ER) | payer OTHER ==
--- NOTE | 2024-06-22 05:13 | ER ---
Nurse's Notes [facility] Name: Marcela Lim Age: 19 yrs Sex: Female : 2005 Arrival Date: 06/22/2024 Time: 04:00 Bed 14 Private MD: Diagnosis: Constipation, chronic Presentation: 06/22 04:12 Chief complaint: Patient states: constipation x 10 days took one dose of Miralax kl without results. Coronavirus screen: Vaccine status: Patient reports being unvaccinated. Ebola Screen: Patient negative for fever greater than or equal to 101.5 degrees Fahrenheit, and additional compatible Ebola Virus Disease symptoms. Initial Sepsis Screen: Does the patient meet any 2 criteria? No. Patient's initial sepsis screen is negative. Does the patient have a suspected source of infection? No. Patient's initial sepsis screen is negative. Risk Assessment: Do you want to hurt yourself or someone else? Patient reports no desire to harm self or others. 04:12 Method Of Arrival: Ambulatory 04:12 Acuity: IVETH 3 kl Triage Assessment: 04:16 General: Appears in no apparent distress. Behavior is cooperative. Pain: Complains of kl pain in abdomen Pain currently is 9 out of 10 on a pain scale. GI: Reports constipation. Historical: - Allergies: 04:15 No Known Allergies; kl - PMHx: 04:15 constipation; Opiate Abuse; kl - Immunization history:: Adult Immunizations not immunized. - Infectious Disease History:: Denies. - Social history:: Smoking status: Patient reports the use of cigarette tobacco products, Reported history of juuling and/or vaping. Screenin:10 [facility] ED Fall Risk Assessment (Adult) History of falling in the last 3 months, kb3 including since admission No falls in past 3 months (0 pts) Confusion or Disorientation No (0 pts) Intoxicated or Sedated No (0 pts) Impaired Gait No (0 pts) Mobility Assist Device Used No (0 pt) Altered Elimination No (0 pt) Score/Fall Risk Level 0 - 2 = Low Risk Oriented to surroundings. Abuse screen: Denies threats or abuse. Denies injuries from another. Nutritional screening: No deficits noted. Tuberculosis screening: No symptoms or risk factors identified. Assessment: 05:10 General: Appears in no apparent distress. Behavior is calm, cooperative, Pt seen by kb3 physician. Reports that she has not taken any OTC medications to induce BM. Per MD, abdominal xray was offered and pt refused. Per MD, abdomen is soft and non-tender to palpation.. 05:28 General: Pt's mother has called ER numerous times screaming profanities demanding that kb3 her daughter "get the procedure with the medicine to remove her stool." She is also demanding an xray, to which I informed her that the patient had been offered one and declined. Pt's mother is yelling that we are refusing to treat her daughter. I assured her that we are not and that the patient had been evaluated by the physician and discharged. PT's mother hung up on me mid conversation each time she called. 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 Vital Signs: 04:12 BP 126 / 76; Pulse 106; Resp 18; Temp 97.4; Pulse Ox 99% ; kl 04:12 Weight 45.36 kg (R); Height 5 ft. 4 in. ; kl 04:12 Body Mass Index 17.16 (45.36 kg, 162.56 cm) ED Course: 04:05 Patient arrived in ED. gm2 04:15 Triage completed. 04:50 Sourav Walker MD is Attending Physician. sp3 05:10 Patient has correct armband on for positive identification. Provided Education on: Plan kb3 of care. 05:10 No provider procedures requiring assistance completed. Patient did not have IV access kb3 during this emergency room visit. Administered Medications: No medications were administered Medication: 05:10 VIS not applicable for this client. kb3 Outcome: 05:10 Discharged to home ambulatory, kb3 05:10 Condition: stable 05:10 Discharge instructions given to patient, Instructed on discharge instructions, follow up and referral plans. medication usage, Demonstrated understanding of instructions, follow-up care, medications, 05:12 Discharge ordered by . sp3 05:33 Patient left the ED. kb3 Signatures: Yashira Pradhan, RN JOSE RAMON Sourav Walker MD MD sp3 Xin Cleary RN RN [facility] [place] Naima Colin gm2
--- NOTE | 2024-06-22 05:13 | EDPHYS ---
Physician Documentation [facility] Name: Marcela Lim Age: 19 yrs Sex: Female : 2005 Arrival Date: 06/22/2024 Time: 04:00 Bed 14 Private MD: ED Physician Sourav Walker HPI: 06/22 05:10 This 19 yrs old Female presents to ER via Ambulatory with complaints of Abdominal Pain, sp3 Constipation. 05:10 19-year-old female with chronic constipation secondary to opiate use now presents again sp3 for recurrent episodes of constipation. Last bowel movement was 2 days ago. Patient states she has not tried any medications or any other promotility agents. She denies any back pain, fever, vomiting, bowel distention, or any other signs or symptoms on ROS at this time.. Historical: - Allergies: 04:15 No Known Allergies; kl - PMHx: 04:15 constipation; Opiate Abuse; kl - Immunization history:: Adult Immunizations not immunized. - Infectious Disease History:: Denies. - Social history:: Smoking status: Patient reports the use of cigarette tobacco products, Reported history of juuling and/or vaping. ROS: 05:10 Constitutional: Negative for fever, chills, and weight loss, Eyes: Negative for injury, sp3 pain, redness, and discharge, ENT: Negative for injury, pain, and discharge, Neck: Negative for injury, pain, and swelling, Cardiovascular: Negative for chest pain, palpitations, and edema, Respiratory: Negative for shortness of breath, cough, wheezing, and pleuritic chest pain, Back: Negative for injury and pain, : Negative for injury, bleeding, discharge, and swelling, MS/Extremity: Negative for injury and deformity, Skin: Negative for injury, rash, and discoloration, Neuro: Negative for headache, weakness, numbness, tingling, and seizure, Psych: Negative for depression, anxiety, suicide ideation, homicidal ideation, and hallucinations, Allergy/Immunology: Negative for hives, rash, and allergies, Endocrine: Negative for neck swelling, polydipsia, polyuria, polyphagia, and marked weight changes, 05:10 All other systems are negative, Exam: 05:11 Constitutional: This is a well developed, well nourished patient who is awake, alert, sp3 and in no acute distress. Head/Face: Normocephalic, atraumatic. Eyes: Pupils equal round and reactive to light, extra-ocular motions intact. Lids and lashes normal. Conjunctiva and sclera are non-icteric and not injected. Cornea within normal limits. Periorbital areas with no swelling, redness, or edema. Neck: Trachea midline, no thyromegaly or masses palpated, and no cervical lymphadenopathy. Supple, full range of motion without nuchal rigidity, or vertebral point tenderness. No Meningismus. Chest/axilla: Normal chest wall appearance and motion. Nontender with no deformity. No lesions are appreciated. Cardiovascular: Regular rate and rhythm with a normal S1 and S2. No gallops, murmurs, or rubs. Normal PMI, no JVD. No pulse deficits. Respiratory: Lungs have equal breath sounds bilaterally, clear to auscultation and percussion. No rales, rhonchi or wheezes noted. No increased work of breathing, no retractions or nasal flaring. Back: No spinal tenderness. No costovertebral tenderness. Full range of motion. Skin: Warm, dry with normal turgor. Normal color with no rashes, no lesions, and no evidence of cellulitis. MS/ Extremity: Pulses equal, no cyanosis. Neurovascular intact. Full, normal range of motion. Neuro: Awake and alert, GCS 15, oriented to person, place, time, and situation. Cranial nerves II-XII grossly intact. Motor strength 5/5 in all extremities. Sensory grossly intact. Cerebellar exam normal. Normal gait. Psych: Awake, alert, with orientation to person, place and time. Behavior, mood, and affect are within normal limits. 05:11 Abdomen/GI: Patient has soft abdomen nondistended with normal bowel sounds. No peritoneal signs, rebound or guarding noted., Vital Signs: 04:12 BP 126 / 76; Pulse 106; Resp 18; Temp 97.4; Pulse Ox 99% ; kl 04:12 Weight 45.36 kg (R); Height 5 ft. 4 in. ; kl 04:12 Body Mass Index 17.16 (45.36 kg, 162.56 cm) kl MDM: 05:00 Medical Screening Exam initiated sp3 05:11 Data reviewed: vital signs, nurses notes, old medical records. ED course: I offered CT sp3 noncontrast and general labs. I also told her that we do not disimpact in the ED. Given the fact that she has not tried any other agents, and her vital signs are normal. She states that she wants to try that first. We will safely discharge home at this time.. 05 05:01 Order name: IV Saline Lock sp3 06/22 05:01 Order name: Labs collected and sent sp3 Administered Medications: No medications were administered Disposition Summary: 06/22/24 05:12 Discharge Ordered Notes: Location: Home sp3 Condition: Stable sp3 Diagnosis - Constipation, chronic sp3 Followup: sp3 - With: Private Physician - When: Upon discharge from the Emergency Department - Reason: Continuance of care Discharge Instructions: - Discharge Summary Sheet sp3 - Chronic Constipation sp3 Forms: - Medication Reconciliation Form sp3 - Antibiotic Education sp3 - Prescription Opioid Use sp3 - Patient Portal Instructions sp3 - Leadership Thank You Letter sp3 Signatures: Dispatcher [employer] Yashira Bonilla RN RN kl Patel, Setul, MD MD sp3 Corrections: (The following items were deleted from the chart) 05:02 05:02 CBC+H.LAB.BRZ ordered. EDMS EDMS 05:02 05:02 COMPREHENSIVE METABOLIC PANEL+C.LAB.BRZ ordered. EDMS EDMS 05:02 05:02 LIPASE+C.LAB.BRZ ordered. EDMS EDMS 05:02 05:02 Abdomen Pelvis Wo Con+CT.RAD.BRZ ordered. EDMS EDMS
[2024-06-22 05:40] VITALS: BP 126/76; TEMP 97.4; O2SAT 99
== END 2024-06-22 05:33 | disposition home or self-care (01) ==
LOC: ER 04:00
DX: K59.09 Other constipation (principal)
CPT/HCPCS: 99282

== ENCOUNTER 2024-10-19 05:09 | Observation (INO) | payer OTHER ==
[2024-10-19] MEDS ORDERED: KETOROLAC 30 MG/ML INJ ONE (05:43)
[2024-10-19] MEDS ORDERED: METOCLOPRAMIDE 10 MG/2mL INJ ONE (05:43)
[2024-10-19] MEDS ORDERED: ONDANSETRON 4 MG/2 ML VIAL ONE (05:43)
[2024-10-19] MEDS ORDERED: NA CHLORIDE 0.9% 1,000 ML ONE ×2 (05:44→08:38)
[2024-10-19 05:56] LABS: Absolute Lymphocytes (CBC) 1.8 K/uL (0.7-4.9); Hematocrit 37.8 % (36.0-45.0); Hemoglobin 13.6 g/dL (12.0-15.0); MCH 27.4 pg (27.0-35.0); MCHC 35.9 g/dL (32.0-36.0); MCV 76.2 fL (80-100); MPV 6.8 fL (7.6-11.3); Nucleated RBC Absolute Count 0.0 (0-0); Nucleated Red Blood Cells % 0.0 % (0-0); RBC Red Blood Cell Count 4.95 M/uL (3.86-4.86); White Blood Count 6.40 thou/uL (4.3-10.9)
[2024-10-19 06:20] LABS: ALT/SGPT 29.0 U/L (13-56); AST/SGOT 21.0 U/L (15-37); Albumin 4.3 g/dL (3.4-5.0); Albumin/Globulin Ratio 1.2 (1.1-1.8); Alkaline Phosphatase 64.0 U/L (45-117); Anion Gap 10.7 mEq/L (5.0-15.0); BUN Blood Urea Nitrogen 25.0 mg/dL (7-18); Globulin 3.7 g/dL (2.3-3.5); Glucose Level 82.0 mg/dL (74-106); Lipase 133.0 U/L (13-75); Potassium 2.7 mEq/L (3.5-5.1)
--- NOTE | 2024-10-19 07:44 | RAD REPORT ---
EXAMINATION: CT ABDOMEN AND PELVIS WITH CONTRAST CLINICAL INDICATION: ABD PAIN TECHNIQUE: CT abdomen and pelvis was performed, after the administration of IV contrast, as per [facility]. Axial, sagittal and coronal reconstructions were obtained. One or more of the following dose reduction techniques were used: Automated exposure control, adjustment of the mA and k V according to patient size, and iterative reconstruction. Unless otherwise specified, incidental findings do not require dedicated imaging follow-up. COMPARISON: 07/24/2024 FINDINGS: LOWER CHEST: The visualized lung bases are clear. LIVER: Normal in size and contour. No focal lesion. Grossly unremarkable gallbladder. SPLEEN: Normal size. No focal lesion. PANCREAS: No mass, ductal dilation, or sincere-pancreatic fluid. ADRENALS: Normal; no mass. KIDNEYS: Normal size and contour. No hydronephrosis. GASTROINTESTINAL TRACT: Severe fecal retention throughout the colon. There is a large amount of stool in the rectum with thickening of the rectal wall measuring 8 mm mild surrounding edema in the perirectal fat. APPENDIX: Normal appendix. LYMPH NODES: No lymphadenopathy. MUSCULOSKELETAL: No acute or suspicious osseous abnormality. IMPRESSION: Stercoral colitis is evidence with severe fecal retention throughout the colon.
[2024-10-19] MEDS ORDERED: FLEET ENEMA ADULT PR ONE (08:14)
--- NOTE | 2024-10-19 08:18 | ER ---
Nurse's Notes [facility] Name: Marcela Lim Age: 19 yrs Sex: Female : 2005 Arrival Date: 10/19/2024 Time: 05:09 Bed 7 Private MD: Diagnosis: Fecal impaction;long term (current) use of opiate analgesic Presentation: 10/19 05:24 Chief complaint: Patient states: Last BM 2 weeks ago, N/V, pain 11/30. Coronavirus cc6 screen: Client denies travel out of the [place] in the last 14 days. At this time, the client does not indicate any symptoms associated with coronavirus-19. Ebola Screen: No symptoms or risks identified at this time. Initial Sepsis Screen: Does the patient meet any 2 criteria? No. Patient's initial sepsis screen is negative. Does the patient have a suspected source of infection? No. Patient's initial sepsis screen is negative. Risk Assessment: Do you want to hurt yourself or someone else? Patient reports no desire to harm self or others. Onset of symptoms was October 05, 2024. 05:24 Method Of Arrival: Ambulatory cc6 05:24 Acuity: IVETH 4 cc6 Triage Assessment: 05:27 General: Appears comfortable, Behavior is cooperative, agitated, anxious, restless. cc6 Pain: Complains of pain in right upper quadrant, left upper quadrant, right lower quadrant and left lower quadrant Pain currently is 10 out of 10 on a pain scale. EENT: Neuro: Level of Consciousness is awake, alert, obeys commands, Oriented to person, place, time, situation. Cardiovascular: Patient's skin is warm and dry. Respiratory: Airway is patent Respiratory effort is even, unlabored, Respiratory pattern is regular, symmetrical. GI: Abdomen is flat, non-distended, Last BM was October 05, 2024. 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 - Infectious Disease History:: Denies. - Social history:: Patient/guardian denies using. - Family history:: not pertinent. Screenin:37 [facility] ED Fall Risk Assessment (Adult) History of falling in the last 3 months, bm8 including since admission No falls in past 3 months (0 pts) Confusion or Disorientation No (0 pts) Intoxicated or Sedated No (0 pts) Impaired Gait No (0 pts) Mobility Assist Device Used No (0 pt) Altered Elimination No (0 pt) Score/Fall Risk Level 0 - 2 = Low Risk Oriented to surroundings, Maintained a safe environment, Educated pt \T\ family on fall prevention, incl call for assistance when getting out of bed, Assessed \T\ reinforced patient's understanding of fall precautions, Hourly rounding (assess needs \T\ fall precautionary measures) done, Used ambulatory aids as needed (educated on \T\ assisted with), Used gait belt as appropriate. Abuse screen: Denies threats or abuse. Nutritional screening: No deficits noted. Tuberculosis screening: No symptoms or risk factors identified. Assessment: 06:37 Reassessment: Patient appears in no apparent distress at this time. Patient and/or bm8 family updated on plan of care and expected duration. Pain level reassessed. Patient is alert, oriented x 3, equal unlabored respirations, skin warm/dry/pink. Patient states symptoms have not improved. 07:30 Reassessment: Pt sleeping, relaxed and equal respirations. . aa5 08:00 Reassessment: Pt drowsy, awakens to verbal and tactile stimuli. . Neuro: Level of aa5 Consciousness is obeys commands, Oriented to person, place, time, situation. 08:00 Reassessment: MD at bedside . aa5 08:20 Reassessment: Moderate amount of formed stool noted, pt cleaned, bed linen changed, aa5 clean gown applied, and clean warm blankets provided. MD notified of BM. . 08:35 Reassessment: Pt sleeping and drowsy, relaxed and equal respirations, skin is aa5 pink/warm/dry. . 09:45 Reassessment: Pt cleaned of soft moderate amount of stool, clean brief applied. Pt aa5 remains drowsy awakens to verbal and tactile stimuli. . Vital Signs: 05:24 BP 138 / 99; Pulse 83; Resp 16; Temp 97.6; Pulse Ox 100% on R/A; Weight 45.36 kg; cc6 Height 5 ft. 4 in. ; Pain 10/10; 06:37 BP 111 / 43; Pulse 76; Resp 18; Temp 97.6; Pulse Ox 99% ; Pain 10/10; bm8 07:32 BP 118 / 69; Pulse 82; Resp 16 S; Pulse Ox 100% on R/A; aa5 09:47 BP 107 / 73; Pulse 60; Resp 16; Pulse Ox 100% on R/A; nh2 05:24 Body Mass Index 17.16 (45.36 kg, 162.56 cm) cc6 05:24 Pain Scale: Adult cc6 06:37 Pain Scale: Adult bm8 [place] Coma Score: 06:37 Eye Response: spontaneous(4). Motor Response: obeys commands(6). Verbal Response: bm8 oriented(5). Total: 15. 07:06 Eye Response: spontaneous(4). Motor Response: obeys commands(6). Verbal Response: sp4 oriented(5). Total: 15. ED Course: 05:13 Patient arrived in ED. jj6 05:23 Meng Zamarripa MD is Attending Physician. sp4 05:24 Joe Boucher, RN is Primary Nurse. bm8 05:26 Triage completed. cc6 05:29 Arm band placed on right wrist. cc6 05:37 Inserted saline lock: 20 gauge in right antecubital area, using aseptic technique. cc6 Blood collected. Flushed with 10 mL NS. 05:45 Test, Serum Sent. cp4 05:45 CBC with Diff Sent. cp4 05:45 CMP Sent. cp4 05:45 Lipase Sent. cp4 06:37 Patient has correct armband on for positive identification. Bed in low position. Call bm8 light in reach. Adult w/ patient. Client placed on continuous cardiac and pulse oximetry monitoring. NIBP monitoring applied. Pulse ox on. NIBP on. Door closed. Noise minimized. Warm blanket given. Pillow given. Verbal reassurance given. Head of bed lowered. 06:37 No provider procedures requiring assistance completed. bm8 06:57 CT Abd/Pelvis - IV Contrast Only In Process Unspecified. EDMS 07:06 Report given to Lou Velasquez and JOSE RAMON Granado. bm8 08:08 Attending Physician role handed off by Meng Zamarripa MD rn 08:08 Toni Swenson MD is Attending Physician. rn 08:16 Arnaldo Romero MD is Hospitalizing Provider. rn 09:46 EKG done, by ED staff, reviewed by Nora Reese NP. aa5 10:20 Report given to JOSE RAMON Marx. aa5 Administered Medications: 05:51 Drug: TORadol - Ketorolac IVP 15 mg IVP once Route: IVP; Site: right antecubital; bm8 06:47 Follow up: Response: No adverse reaction bm8 05:51 Drug: Ondansetron IVP 4 mg IVP once; over 2 minutes Route: IVP; Site: right antecubital;bm8 06:47 Follow up: Response: No adverse reaction bm8 05:51 Drug: NS 0.9% IV 1000 ml IV at 1 bolus Per protocol; to be given as a bolus over 60 bm8 minutes Route: IV; Rate: 1 bolus; Site: right antecubital; 06:47 Follow up: Response: No adverse reaction; IV Status: Completed infusion bm8 05:51 Drug: metoCLOPramide IVP 10 mg IVP once; over 1 to 2 minutes Route: IVP; Site: right bm8 antecubital; 06:46 Follow up: Response: No adverse reaction bm8 05:51 Drug: Droperidol IVP 2.5 mg IVP once Route: IVP; Site: right antecubital; bm8 06:46 Follow up: Response: No adverse reaction bm8 08:33 Drug: Fleet Enema TN 133 ml TN once; may repeat once Route: TN; aa5 09:14 Follow up: Response: No adverse reaction aa5 08:35 Drug: NS 0.9% IV 1000 ml IV at 1000 ml once; to be given as a bolus over 60 minutes aa5 Route: IV; Rate: 1000 ml; Site: right antecubital; 09:35 Follow up: IV Status: Completed infusion; IV Intake: 1000ml aa5 Medication: 06:37 VIS not applicable for this client. bm8 Intake: 09:35 IV: 1000ml; Total: 1000ml. aa5 Outcome: 08:17 Decision to Hospitalize by Provider. rn 11:48 Patient left the ED. dd2 Signatures: Dispatcher [employer] EDMS Toni Swenson MD MD rn Calderon, Audri, RN RN aa5 Batool [email or web address] Meng Zamarripa MD MD sp4 Karine Mack cp4 Joe Boucher, RN RN bm8 Chayito Conner, RN RN cc6 DERRICK SOTOMAYOR, RN RN dd2 Shashank Murphy, Loy, RN RN nh2
--- NOTE | 2024-10-19 08:18 | EDPHYS ---
Physician Documentation [facility] Name: Marcela Lim Age: 19 yrs Sex: Female : 2005 Arrival Date: 10/19/2024 Time: 05:09 Bed 7 Private MD: ED Physician Toni Swenson HPI: 10/19 05:23 This 19 yrs old Female presents to ER via Unassigned with complaints of sp4 Constipation. 06:46 19-year-old female presents with complaint of 2 weeks without any bowel movements. sp4 Patient is familiar to me from prior presentations. Patient has history of fentanyl abuse and moderate to severe fecal impactions. Patient reports moderate to severe diffuse abdominal pain associated with rectal pain today.. YOUTH ADVOCATE: 05:29 LMP N/A - Irregular menses, Not cc6 Historical: - Allergies: 05:26 No Known Allergies; cc6 - PMHx: 05:26 constipation; Opiate Abuse; cc6 - PSHx: 05:26 None; cc6 - Immunization history:: Client reports receiving the 1st dose of the Covid vaccine. - Infectious Disease History:: Denies. - Social history:: Patient/guardian denies using. - Family history:: not pertinent. ROS: 07:06 Constitutional: Negative for fever, chills, and weight loss, positive for rectal pain, sp4 positive for constipation, 07:06 All other systems are negative, Exam: 07:06 Constitutional: Thin appearing female, ill-appearing but nontoxic. Head/Face: sp4 Normocephalic, atraumatic. Eyes: Pupils equal round and reactive to light, extra-ocular motions intact. Lids and lashes normal. Conjunctiva and sclera are not injected. Cornea within normal limits. Periorbital areas with no swelling, redness, or edema. ENT: Nares patent. No nasal discharge, no septal abnormalities noted. Tympanic membranes are normal and external auditory canals are clear. Oropharynx with no redness, swelling, or masses, exudates, or evidence of obstruction, uvula midline. Mucous membranes moist. Neck: Trachea midline, no thyromegaly or masses palpated, and no cervical lymphadenopathy. Supple, full range of motion without nuchal rigidity, or vertebral point tenderness. Chest/axilla: Normal chest wall appearance and motion. Nontender with no deformity. No lesions are appreciated. Cardiovascular: Regular rate and rhythm with a normal S1 and S2. No gallops, murmurs, or rubs. No pulse deficits. Respiratory: Lungs have equal breath sounds bilaterally, clear to auscultation and percussion. No rales, rhonchi or wheezes noted. No increased work of breathing, no retractions or nasal flaring. Abdomen/GI: Soft, with normal bowel sounds. Diffuse abdominal tenderness with mild distention. Back: No spinal tenderness. No costovertebral tenderness. Female : Normal external genitalia. 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 Skin: Warm, dry with normal turgor. Normal color with no rashes, no lesions, and no evidence of cellulitis. MS/ Extremity: Pulses equal, no cyanosis. Neurovascular intact. Full, normal range of motion. Neuro: Awake and alert, GCS 15, oriented to person, place, time, and situation. Cranial nerves II-XII grossly intact. Motor strength 5/5 in all extremities. Sensory grossly intact. Psych: Awake, alert, with orientation to person, place and time. Behavior, mood, and affect are within normal limits Vital Signs: 05:24 BP 138 / 99; Pulse 83; Resp 16; Temp 97.6; Pulse Ox 100% on R/A; Weight 45.36 kg; cc6 Height 5 ft. 4 in. ; Pain 10/10; 06:37 BP 111 / 43; Pulse 76; Resp 18; Temp 97.6; Pulse Ox 99% ; Pain 10/10; bm8 07:32 BP 118 / 69; Pulse 82; Resp 16 S; Pulse Ox 100% on R/A; aa5 09:47 BP 107 / 73; Pulse 60; Resp 16; Pulse Ox 100% on R/A; nh2 05:24 Body Mass Index 17.16 (45.36 kg, 162.56 cm) cc6 05:24 Pain Scale: Adult cc6 06:37 Pain Scale: Adult bm8 Marilyn Coma Score: 06:37 Eye Response: spontaneous(4). Motor Response: obeys commands(6). Verbal Response: bm8 oriented(5). Total: 15. 07:06 Eye Response: spontaneous(4). Motor Response: obeys commands(6). Verbal Response: sp4 oriented(5). Total: 15. MDM: 05:36 Medical Screening Exam initiated sp4 08:10 Differential diagnosis: bowel obstruction, non-specific abd pain, Fecal impaction, rn constipation, opiate abuse, stercoral colitis. Data reviewed: vital signs, nurses notes, lab test result(s), radiologic studies, CT scan, and as a result, I will admit patient. Consideration of Admission/Observation Patient was admitted/placed on observation. Escalation of care including admission/observation considered. Consideration of Admission/Observation Patient was admitted/placed on observation. Escalation of care including admission/observation considered. Independent interpretation of the following test(s) in the Emergency Department CT Scan: My interpretation is CT images show fecal impaction with diffuse constipation per my interpretation. Care significantly affected by the following chronic conditions: Opiate abuse. Counseling: I had a detailed discussion with the patient and/or guardian regarding the historical points, exam findings, and any diagnostic results supporting the discharge/admit diagnosis, lab results, radiology results, the need for further work-up and treatment in the hospital. Response to treatment: There is no appreciated change of the patient's symptoms at this time, and as a result, I will admit patient. ED course: Patient with stercoral colitis and fecal impaction. Patient refuses disimpaction manually. Will try enema and magnesium citrate. Anticipate admission given findings of stercoral colitis.. 21:28 ED course: COMPARISON: 07/24/2024 FINDINGS: LOWER CHEST: The visualized lung bases are sp4 clear. LIVER: Normal in size and contour. No focal lesion. Grossly unremarkable gallbladder. SPLEEN: Normal size. No focal lesion. PANCREAS: No mass, ductal dilation, or sincere-pancreatic fluid. ADRENALS: Normal; no mass. KIDNEYS: Normal size and contour. No hydronephrosis. GASTROINTESTINAL TRACT: Severe fecal retention throughout the colon. There is a large amount of stool in the rectum with thickening of the rectal wall measuring 8 mm mild surrounding edema in the perirectal fat. APPENDIX: Normal appendix. LYMPH NODES: No lymphadenopathy. MUSCULOSKELETAL: No acute or suspicious osseous abnormality. IMPRESSION: Stercoral colitis is evidence with severe fecal retention throughout the colon.. 10/19 05:36 Order name: CBC with Diff; Complete Time: 06:46 sp4 10/19 05:36 Order name: CMP; Complete Time: 06:46 sp4 10/19 05:36 Order name: Lipase; Complete Time: 06:46 sp4 10/19 05:36 Order name: Test, Serum; Complete Time: 06:46 sp4 10/19 09:50 Order name: Basic Metabolic Panel EDMS 10/19 09:50 Order name: Basic Metabolic Panel EDMS 10/19 09:50 Order name: CBC with Automated Diff EDMS 10/19 09:50 Order name: CBC with Automated Diff EDMS 10/19 09:50 Order name: Magnesium EDMS 10/19 09:50 Order name: Magnesium EDMS 10/19 09:50 Order name: Phosphorus EDMS 10/19 09:50 Order name: Phosphorus EDMS 10/19 09:50 Order name: Troponin High Sensitivity EDMS 10/19 09:50 Order name: Troponin High Sensitivity EDMS 10/19 09:50 Order name: Troponin High Sensitivity EDMS 10/19 09:50 Order name: Troponin High Sensitivity EDMS 10/19 10:05 Order name: UA Rfx Ihsan Cult if indicated EDMS 10/19 10:05 Order name: Urine Drug Screen EDMS 10/19 05:36 Order name: CT Abd/Pelvis - IV Contrast Only; Complete Time: 08:08 sp4 10/19 09:50 Order name: EKG Electrocardiogram EDMS 10/19 10:08 Order name: Dietitian Consult EDMS 10/19 05:36 Order name: IV Saline Lock; Complete Time: 05:38 sp4 10/19 05:36 Order name: Labs collected and sent; Complete Time: 05:38 sp4 10/19 09:46 Order name: EKG - Nurse/Tech; Complete Time: 09:46 aa5 Administered Medications: 05:51 Drug: TORadol - Ketorolac IVP 15 mg IVP once Route: IVP; Site: right antecubital; bm8 06:47 Follow up: Response: No adverse reaction bm8 05:51 Drug: Ondansetron IVP 4 mg IVP once; over 2 minutes Route: IVP; Site: right antecubital;bm8 06:47 Follow up: Response: No adverse reaction bm8 05:51 Drug: NS 0.9% IV 1000 ml IV at 1 bolus Per protocol; to be given as a bolus over 60 bm8 minutes Route: IV; Rate: 1 bolus; Site: right antecubital; 06:47 Follow up: Response: No adverse reaction; IV Status: Completed infusion bm8 05:51 Drug: metoCLOPramide IVP 10 mg IVP once; over 1 to 2 minutes Route: IVP; Site: right bm8 antecubital; 06:46 Follow up: Response: No adverse reaction bm8 05:51 Drug: Droperidol IVP 2.5 mg IVP once Route: IVP; Site: right antecubital; bm8 06:46 Follow up: Response: No adverse reaction bm8 08:33 Drug: Fleet Enema AK 133 ml AK once; may repeat once Route: AK; aa5 09:14 Follow up: Response: No adverse reaction aa5 08:35 Drug: NS 0.9% IV 1000 ml IV at 1000 ml once; to be given as a bolus over 60 minutes aa5 Route: IV; Rate: 1000 ml; Site: right antecubital; 09:35 Follow up: IV Status: Completed infusion; IV Intake: 1000ml aa5 Disposition: 21:28 Chart complete. 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 EDMS EDMS 05:37 05:37 COMPREHENSIVE METABOLIC PANEL+C.LAB.BRZ ordered. EDMS EDMS 05:37 05:37 LIPASE+C.LAB.BRZ ordered. EDMS EDMS 05:37 05:37 TEST, SERUM+SC.LAB.BRZ ordered. EDMS EDMS 05:37 05:37 Abdomen Pelvis W Con+CT.RAD.BRZ ordered. [facility] EDKS 08:11 07:07 Differential diagnosis: bowel obstruction, diverticulitis, gastritis, Hepatitis, rn non-specific abd pain, sp4 08:11 07:07 Data reviewed: vital signs, nurses notes, lab test result(s), CBC, electrolytes, rn hepatic panel, radiologic studies, CT scan, sp4 08:11 07:07 Consideration of Admission/Observation Escalation of care including rn digestive/observation considered. sp4 08:11 07:07 Transition of care: After a detail discussion of the patient's case, care is rn transferred to Toni Swenson MD sp4 10:30 08:17 rn eb
--- NOTE | 2024-10-19 10:02 | P.HP ---
Certification for Inpatient Patient admitted to: Observation With expected LOS: <2 Midnights Patient will require the following post-hospital care: None Practitioner: I am a practitioner with admitting privileges, knowledge of patient current condition, hospital course, and medical plan of care. Services: Services provided to patient in accordance with Admission requirements found in Title 42 Section 412.3 of the Code of Federal Regulations Patient History Date of Service: 10/19/24 Reason for admission: constipation 2/2 narcotic use History of Present Illness: Marcela Lim is a 19 year old female with pmhx of constipation and opioid abuse who presents to the ED with chief complaint of 2 weeks without a bowel movement. CT abdomen pelvis with contrast reports "Stercoral colitis is evidence with severe fecal retention throughout the colon." Family at the bedside reports that she takes Percocet and fentanyl and does not know her distributor. Mother reports the patient is constipated due to narcotic use and presents cachectic. Laboratory evaluation significant for potassium 2.7, lipase 133, negative. Marcela will be admitted to hospitalist service for further evaluation and treatment of severe constipation secondary to narcotic use. Allergies No Known Allergies Allergy (Unverified 01/21/17 09:32) Home Medications: NK [No Home Meds] 10/19/24 - Past Medical/Surgical History -: Substance abuse -: Constipation Past Surgical History: Patient denies surgical history - Social History Smoking Status: Never smoker Alcohol use: Yes Review of Systems Other: Per HPI Physical Examination - Physical Exam General: Other (Lethargic) HEENT: Atraumatic, Normocephalic Neck: Supple, 2+ carotid pulse no bruit Respiratory: Clear to auscultation bilaterally, Normal air movement Cardiovascular: No edema, Regular rate/rhythm Gastrointestinal: Normal bowel sounds, Soft and benign Musculoskeletal: No clubbing Integumentary: No rashes Neurological: Normal speech, Normal tone - Studies Laboratory Data (last 24 hrs) 10/19/24 10/19/24 05:42 05:42 WBC 6.40 Hgb 13.6 Hct 37.8 Plt Count 455 H Sodium 134 L Potassium 2.7 L BUN 25 H Creatinine 0.81 Glucose 82 Total Bilirubin 0.6 AST 21 ALT 29 Alkaline Phosphatase 64 Lipase 133 H Assessment and Plan - Plan Assessment and plan Chronic constipation secondary to narcotic use Substance abuse -UDS pendingpatient refuses to give urine -Enema and mag citrate given in the ED with results -Continuous telemetry -Zofran -Tylenol for pain control -Clear liquids -Patient reports multiple episodes of constipation, today's episode is severe per CT Elevated lipase - No complaints of abdominal pain - No nausea or vomiting -IV fluids and monitor in the a.m. Hypokalemia - K2.7 - Replace PO Cachectic - Nutritional consult DVT PPx SCDs Full code LOS 24-hour OBS Discharge Plan: Home Plan to discharge in: 48 Hours - Advance Directives Does patient have a Living Will: No Does patient have a Durable POA for Healthcare: No Time Spent Managing Pts Care (In Minutes): 60
[2024-10-19] MEDS ORDERED: ONDANSETRON 4 MG/2 ML VIAL IV PRN (10:03)
[2024-10-19] MEDS: POTASSIUM 25 MEQ EFFERV TAB PO ONE ×2 (11:00→16:05)
[2024-10-19 12:01] VITALS: O2SAT 100; BMI 14.3
[2024-10-19] MEDS: MINERAL OIL 30 ML UCUP PO ONE ×2 (12:28→16:05)
--- NOTE | 2024-10-19 13:59 | RAD REPORT ---
EXAM: AP view(s) of the abdomen Abdomen 1 View (KUB) HISTORY: constipation COMPARISON: None FINDINGS: Nonobstructive bowel gas pattern.. Overall, the stool burden is low. Most of the stool is centered a t the ascending colon. No suspicious calcifications are seen. No acute osseous abnormality. Other: n/a IMPRESSION: Nonobstructive bowel gas pattern. Low formed stool burden.
[2024-10-19] MEDS: NA CHLORIDE 0.9% 1,000 ML IV SCH (16:14)
[2024-10-19 16:15] VITALS: BP 116/54; TEMP 98.1
[2024-10-19 19:10] LABS: Anion Gap 6.4 mEq/L (5.0-15.0); BUN Blood Urea Nitrogen 13.0 mg/dL (7-18); Glucose Level 103.0 mg/dL (74-106); Potassium 4.4 mEq/L (3.5-5.1)
--- NOTE | 2024-10-20 06:43 | P.DS ---
Admission Date: 10/19/24 Discharge Date: 10/19/24 Disposition: AMA-LEFT AGAINST MEDICAL ADVIC Discharge Condition: FAIR Reason for Admission: constipation 2/2 narcotic use Brief History of Present Illness: Diagnosis Chronic constipation secondary to narcotic use Substance abuse Elevated lipase Hypokalemia Severe malnutrition HPI 10/19/24 Marcela Lim is a 19 year old female with pmhx of constipation and opioid abuse who presents to the ED with chief complaint of 2 weeks without a bowel movement. CT abdomen pelvis with contrast reports "Stercoral colitis is evidence with severe fecal retention throughout the colon." Family at the bedside reports that she takes Percocet and fentanyl and does not know her distributor. Mother reports the patient is constipated due to narcotic use and presents cachectic. Laboratory evaluation significant for potassium 2.7, lipase 133, negative. Marcela will be admitted to hospitalist service for further evaluation and treatment of severe constipation secondary to narcotic use. Hospital Course: Marcela was admitted and treated for severe constipation 2/2 narcotic use. Her mother reports Percocet and fentanyl use daily. Unknown distributor . She was successfully treated for constipation had several bowel movements, she reported she was feeling better and tolerated a regular diet. She had followed her mother outside the facility for her mother to smoke. When she returned she became lethargic, unable to wake up to answer questions, and experienced bradycardia with heart rate dropping to 42, previously her heart rate was stable in the 80s, NSR. Patient was questioned if she participated in drug use while outside the building of which she responded no. She was informed that further evaluation of her heart rate would need to take place overnight and consult to cardiology was needed. She refused further care and treatment at this time. We have discussed the danger and limitations that will likely occur from leaving the hospital without treatment, specifically , stroke, and becoming unstable hemodynamically. Marcela has decided to leave against medical advice and treatment. Vital Signs/Physical Exam: Temp Pulse Resp BP Pulse Ox 98.1 F 77 19 116/54 L 99 10/19/24 16:00 10/19/24 16:00 10/19/24 16:00 10/19/24 16:00 10/19/24 16:00 Laboratory Data at Discharge: WBC 6.40 thou/uL (4.3-10.9) 10/19/24 05:42 Hgb 13.6 g/dL (12.0-15.0) 10/19/24 05:42 Hct 37.8 % (36.0-45.0) 10/19/24 05:42 Plt Count 455 thou/uL (152-406) H 10/19/24 05:42 Sodium 140 mEq/L (136-145) D 10/19/24 18:38 Potassium 4.4 mEq/L (3.5-5.1) D 10/19/24 18:38 BUN 13 mg/dL (7-18) 10/19/24 18:38 Creatinine 0.46 mg/dL (0.55-1.02) L 10/19/24 18:38 Glucose 103 mg/dL (74-106) 10/19/24 18:38 Total Bilirubin 0.6 mg/dL (0.2-1.0) 10/19/24 05:42 AST 21 U/L (15-37) 10/19/24 05:42 ALT 29 U/L (13-56) 10/19/24 05:42 Alkaline Phosphatase 64 U/L (45-117) 10/19/24 05:42 Lipase 133 U/L (13-75) H 10/19/24 05:42 Home Medications: NK [No Home Meds] 10/19/24 Followup: NONE,NONE [Primary Care Provider] -
== END 2024-10-19 19:30 | disposition left against medical advice (07) ==
LOC: ER 05:09 → ERHOLD 09:40 → 2ND 11:04
PROVIDERS: ADMIT Hospitalist; ATTEND Hospitalist
DX: K59.00 Constipation, unspecified (principal); R00.1 Bradycardia, unspecified; R53.83 Other fatigue; F11.10 Opioid abuse, uncomplicated; R64 Cachexia; E87.6 Hypokalemia; E43 Unspecified severe protein-calorie malnutrition; Z68.1 Body mass index [BMI] 19.9 or less, adult; Z53.29 Procedure and treatment not carried out because of patient's decision for other reasons
CPT/HCPCS: 96361; 85025; 80048; 36415; 84703; 84484 ×2; 83690; 80053; 74177; 74018; 96375; 96374; 99284; Q9967; J2765; J2405; J1790; J7030 ×3; 93005